=== PATIENT | female | born 1995 ===

== ENCOUNTER 2018-05-25 19:27 | Emergency (ER) | payer SELFPAY ==
[2018-05-25] MEDS ORDERED: Sodium Chloride 0.9% 500 ML IV ONE (20:04)
--- NOTE | 2018-05-25 20:04 | C.PDOC ---
History Of Present Illness 23 year old female presents to the ED c/o nausea and vomiting that started today. Patient states she has not been able to keep anything down, reports her LMp was on 05/12/18. Contrary to triage patient denies headache. Patient also denies fever, chills, diarrhea, abdominal pain, back pain, dysuria, recent travel, sick contacts. Time Seen by Provider: 05/25/18 19:48 Chief Complaint (Nursing): Headache History Per: Patient History/Exam Limitations: no limitations Onset/Duration Of Symptoms: Days (today) Current Symptoms Are (Timing): Still Present Quality Of Discomfort: "Pain" Associated Symptoms: Nausea, Vomiting. denies: Diarrhea, Urinary Symptoms Recent travel outside of the [place]: No Additional History Per: Patient Abnormal Vaginal Bleeding: No Last Menstral Period: 05/12/18 Past Medical History Reviewed: Historical Data, Nursing Documentation, Vital Signs Vital Signs: Last Vital Signs Temp 98 F 05/25/18 19:30 Pulse 84 05/25/18 19:30 Resp 20 05/25/18 19:30 BP 106/67 05/25/18 19:30 Pulse Ox 98 05/25/18 19:30 - Medical History PMH: No Chronic Diseases Surgical History: No Surg Hx Family History: States: Unknown Family Hx - Social History Hx Alcohol Use: Yes Hx Substance Use: No - Immunization History Hx Tetanus Toxoid Vaccination: No Hx Influenza Vaccination: No Hx Pneumococcal Vaccination: No Review Of Systems Constitutional: Negative for: Fever, Chills Cardiovascular: Negative for: Chest Pain, Palpitations Respiratory: Negative for: Shortness of Breath Gastrointestinal: Positive for: Nausea, Vomiting. Negative for: Abdominal Pain, Diarrhea Genitourinary: Negative for: Dysuria Musculoskeletal: Negative for: Back Pain Skin: Negative for: Rash Neurological: Negative for: Weakness, Numbness Physical Exam - Physical Exam Appears: Non-toxic, No Acute Distress Skin: Normal Color, Warm, Dry Head: Atraumatic, Normacephalic Eye(s): bilateral: Normal Inspection Oral Mucosa: Moist Neck: Normal ROM, Supple Chest: Symmetrical Cardiovascular: Rhythm Regular Respiratory: Normal Breath Sounds, No Rales, No Rhonchi, No Wheezing Gastrointestinal/Abdominal: Soft, No Tenderness, No Guarding, No Rebound Extremity: Normal ROM, No Tenderness, No Swelling Neurological/Psych: Oriented x3, Normal Speech, Normal Cognition Gait: Steady ED Course And Treatment O2 Sat by Pulse Oximetry: 98 (On RA) Pulse Ox Interpretation: Normal Medical Decision Making Medical Decision Making: Plan: * Iv fluids * zofran 4 mg IVP Disposition Counseled Patient/Family Regarding: Studies Performed, Diagnosis, Need For Followup, Rx Given - Disposition Referrals: [facility] [Outside] [facility] [Outside] [facility] [Outside] Disposition: HOME/ ROUTINE Disposition Time: 20:45 Condition: IMPROVED Prescriptions: Ondansetron ODT [Zofran ODT] 4 mg PO TID PRN #12 odt PRN Reason: Nausea/Vomiting Instructions: Nausea and Vomiting of (DC) Forms: [employer] (Pashto), Work Excuse Print Language: OCCITAN - Clinical Impression Clinical Impression: Vomiting - Scribe Statement The provider has reviewed the documentation as recorded by the Scribe Michael Rodarte All medical record entries made by the Scribe were at my direction and personally dictated by me. I have reviewed the chart and agree that the record accurately reflects my personal performance of the history, physical exam, medical decision making, and the department course for this patient. I have also personally directed, reviewed, and agree with the discharge instructions and disposition.
[2018-05-25 21:01] VITALS: BP 100/59; PULSE 77; RESP 18; TEMP 98.9; O2SAT 100
== END 2018-05-25 21:01 | disposition home or self-care (01) ==
LOC: C.ER 19:27
DX: O21.9 Vomiting of pregnancy, unspecified (principal); Z3A.00 Weeks of gestation of pregnancy not specified
CPT/HCPCS: 81025; 96374; 99285; J2405; J7040

== ENCOUNTER 2018-06-01 01:32 | Emergency (ER) | payer OTHER ==
[2018-06-01 01:58] VITALS: TEMP 98.4; O2SAT 100
[2018-06-01] MEDS ORDERED: Sodium Chloride 0.9% 2,000 ML IV ONE (02:14)
--- NOTE | 2018-06-01 02:14 | C.PDOC ---
History Of Present Illness 23 year old female, , presents to the ED c/o nausea and vomit. Patient is unsure of her LMP, also c/o not being able to tolerate PO. Patient denies fever, chills, abdominal pain, back pain, dysuria, hematuria, vaginal bleeding. Time Seen by Provider: 06/01/18 02:13 Chief Complaint (Nursing): GI Problem History Per: Patient History/Exam Limitations: no limitations Onset/Duration Of Symptoms: Days Current Symptoms Are (Timing): Still Present Recent travel outside of the [place]: No Additional History Per: Patient Past Medical History Reviewed: Historical Data, Nursing Documentation, Vital Signs Vital Signs: Last Vital Signs Temp 98.4 F 06/01/18 01:52 Pulse 79 06/01/18 01:52 Resp 22 06/01/18 01:52 BP 113/67 06/01/18 01:52 Pulse Ox 100 06/01/18 01:52 - Medical History PMH: No Chronic Diseases Surgical History: No Surg Hx Family History: States: Unknown Family Hx - Social History Hx Alcohol Use: Yes Hx Substance Use: No - Immunization History Hx Tetanus Toxoid Vaccination: No Hx Influenza Vaccination: No Hx Pneumococcal Vaccination: No Review Of Systems Constitutional: Negative for: Fever, Chills Cardiovascular: Negative for: Chest Pain Respiratory: Negative for: Cough Gastrointestinal: Positive for: Nausea, Vomiting. Negative for: Diarrhea Genitourinary: Negative for: Dysuria, Hematuria, Vaginal Bleeding Musculoskeletal: Negative for: Back Pain Neurological: Negative for: Weakness, Numbness Physical Exam - Physical Exam Appears: Non-toxic, No Acute Distress Skin: Warm, Dry Head: Normacephalic Eye(s): bilateral: Normal Inspection Neck: Supple Chest: Symmetrical Cardiovascular: Rhythm Regular Respiratory: No Rales, No Rhonchi, No Wheezing Gastrointestinal/Abdominal: Soft, No Tenderness, No Guarding, No Rebound Back: No CVA Tenderness Extremity: Bilateral: Atraumatic, Normal Color And Temperature, Normal ROM Neurological/Psych: Oriented x3, Normal Speech, Normal Cognition Gait: Steady ED Course And Treatment - Laboratory Results Result Diagrams: 06/01/18 02:36 06/01/18 02:36 O2 Sat by Pulse Oximetry: 100 (ON RA) Pulse Ox Interpretation: Normal Progress Note: Plan: - Labs. - Protonix 40 mg IVP. - IV fluids. - Zofran 4 mg IVP. - UA Reevaluation Time: 04:06 Reassessment Condition: Improved Disposition Counseled Patient/Family Regarding: Studies Performed, Diagnosis, Need For Followup, Rx Given - Disposition Referrals: [facility] [Outside] [facility] [Outside] Disposition: HOME/ ROUTINE Disposition Time: 02:14 Condition: FAIR Additional Instructions: Please return if symptoms recur Prescriptions: Metoclopramide [Reglan] 1 tab PO TID PRN #25 tab PRN Reason: Nausea/Vomiting Nitrofurantoin Macrocrystals [Macrobid] 1 cap PO BID #14 cap Instructions: Urinary Tract Infection, Adult (DC), Nausea and Vomiting of (DC) Forms: [employer] (Sami) Print Language: ISRAELI - Clinical Impression Clinical Impression: Vomiting , UTI (urinary tract infection) during - Scribe Statement The provider has reviewed the documentation as recorded by the Scribe Michael Rodarte All medical record entries made by the Scribe were at my direction and personally dictated by me. I have reviewed the chart and agree that the record accurately reflects my personal performance of the history, physical exam, medical decision making, and the department course for this patient. I have also personally directed, reviewed, and agree with the discharge instructions and di sposition.
[2018-06-01 02:39] LABS: BASO # 0.1 K/uL (0.0-0.2); BASO % 0.9 % (0.0-2.0); EOS # 0.1 K/uL (0.0-0.7); HEMOGLOBIN 12.7 g/dL (11.0-16.0); LYMPH # 1.3 K/uL (1.0-4.3); MEAN CELL VOLUME 87.7 fL (81.0-99.0); MEAN CORPUSCULAR HEMOGLOBIN 29.6 pg (27.0-31.0); MEAN CORPUSCULAR HGB CONC 33.7 g/dL (33.0-37.0); MEAN PLATELET VOLUME 9.4 fL (7.2-11.7); MONO # 0.6 K/uL (0.0-0.8); MONO % 8.1 % (0.0-10.0); NEUT # 4.8 K/uL (1.8-7.0); RBC 4.3 Mil/uL (3.80-5.20); RED CELL DISTRIBUTION WIDTH 13.5 % (11.5-14.5); WHITE BLOOD COUNT 6.8 K/uL (4.8-10.8)
[2018-06-01] MEDS ORDERED: Sodium Chloride 0.9% 1,000 ML ONE (02:40)
[2018-06-01 02:48] LABS: SQUAMOUS EPITHIAL 53 /hpf (0-5); URINE BILIRUBIN NEGATIVE (NEGATIVE); URINE BLOOD NEGATIVE (NEGATIVE); URINE CLARITY Hazy (Clear); URINE COLOR Amber (YELLOW); URINE GLUCOSE (UA) NORMAL (Normal); URINE LEUKOCYTE ESTERASE 2+ Leu/uL (Negative); URINE PROTEIN 2+ mg/dL (NEGATIVE); URINE UROBILINOGEN NORMAL mg/dL (0.2-1.0)
[2018-06-01 02:51] LABS: ALB/GLOB RATIO 1.7 (1.0-2.1); ALBUMIN 4.5 g/dL (3.5-5.0); ALT/SGPT 22 U/L (9-52); AST/SGOT 20 U/L (14-36); BLOOD UREA NITROGEN 11 mg/dL (7-17); CALCIUM 9.2 mg/dl (8.6-10.4); GFR NON-AFRICAN AMERICAN > 60; LIPASE 43 U/L (23-300)
[2018-06-01 03:22] VITALS: BP 105/71; PULSE 84; RESP 16
== END 2018-06-01 04:23 | disposition home or self-care (01) ==
LOC: C.ER 01:32
DX: O21.9 Vomiting of pregnancy, unspecified (principal); O23.40 Unspecified infection of urinary tract in pregnancy, unspecified trimester; Z3A.00 Weeks of gestation of pregnancy not specified
CPT/HCPCS: 80053; 81001; 83690; 84702; 85025; 96374; 96375; 99284; J2405; J7030

== ENCOUNTER 2018-06-20 17:00 | Emergency (ER) | payer OTHER ==
[2018-06-20 17:18] VITALS: RESP 16; O2SAT 100
[2018-06-20] MEDS ORDERED: Sodium Chloride 0.9% 1,000 ML IV ONE (18:59)
--- NOTE | 2018-06-20 19:00 | C.PDOC ---
History Of Present Illness Patient is a 23 year old female who presents to the ED c/o nausea, vomiting, epigastric and RLQ pain. Patient states the she was seen in the ED in the beginning of May and found out she was . Unknown last LMP. She denies any urinary symptoms or vaginal bleeding. <Lindsay Plasencia - Last Filed: 06/20/18 19:26> History Per: Patient History/Exam Limitations: no limitations Location Of Pain/Discomfort: RLQ, Epigastric Quality Of Discomfort: "Pain" Associated Symptoms: Nausea, Vomiting. denies: Urinary Symptoms Recent travel outside of the [place]: No Additional History Per: Patient Abnormal Vaginal Bleeding: No <Lindsay Plasencia - Last Filed: 06/20/18 19:26> <Jhonathan Wells - Last Filed: 06/20/18 22:04> Time Seen by Provider: 06/20/18 17:42 Chief Complaint (Nursing): Abdominal Pain Past Medical History Reviewed: Historical Data, Nursing Documentation, Vital Signs Vital Signs: Last Vital Signs Temp 98.4 F 06/20/18 17:16 Pulse 64 06/20/18 17:16 Resp 16 06/20/18 17:16 BP 97/62 L 06/20/18 17:16 Pulse Ox 100 06/20/18 17:16 - Medical History PMH: No Chronic Diseases Surgical History: No Surg Hx Family History: States: Unknown Family Hx - Social History Hx Alcohol Use: Yes Hx Substance Use: No - Immunization History Hx Tetanus Toxoid Vaccination: No Hx Influenza Vaccination: No Hx Pneumococcal Vaccination: No <Lindsay Plasencia - Last Filed: 06/20/18 19:26> Vital Signs: Last Vital Signs Temp 98.5 F 06/20/18 21:22 Pulse 62 06/20/18 21:22 Resp 16 06/20/18 17:16 BP 100/59 L 06/20/18 21:22 Pulse Ox 100 06/20/18 21:22 <Jhonathan Wells - Last Filed: 06/20/18 22:04> Review Of Systems Gastrointestinal: Positive for: Nausea, Vomiting, Abdominal Pain (RLQ and epigastric pain ) Genitourinary: Negative for: Dysuria, Hematuria, Vaginal Bleeding <Lindsay Plasencia - Last Filed: 06/20/18 19:26> Physical Exam - Physical Exam Appears: Non-toxic, No Acute Distress Skin: Normal Color, Warm, Dry Head: Atraumatic, Normacephalic Oral Mucosa: Moist Neck: Normal ROM, Supple Chest: Symmetrical, No Deformity Cardiovascular: Rhythm Regular, No Murmur Respiratory: Normal Breath Sounds, No Rales, No Rhonchi, No Wheezing Gastrointestinal/Abdominal: Bowel Sounds (normal), Soft, Tenderness (mild epigastric and mild right pelvic tenderness ) Extremity: Normal ROM Neurological/Psych: Oriented x3, Normal Speech, Other (alert) <Lindsay Plasencia - Last Filed: 06/20/18 19:26> ED Course And Treatment O2 Sat by Pulse Oximetry: 100 (on RA) Pulse Ox Interpretation: Normal <Lindsay Plasencia - Last Filed: 06/20/18 19:26> - Laboratory Results Result Diagrams: 06/20/18 19:23 06/20/18 19:23 Lab Results: Total Bilirubin 0.6 mg/dL (0.2-1.3) 06/20/18 19:23 AST 31 U/L (14-36) 06/20/18 19:23 ALT 25 U/L (9-52) 06/20/18 19:23 Alkaline Phosphatase 54 U/L (38-126) 06/20/18 19:23 Total Protein 7.4 g/dL (6.3-8.3) 06/20/18 19:23 Albumin 4.4 g/dL (3.5-5.0) 06/20/18 19:23 Globulin 3.0 gm/dL (2.2-3.9) 06/20/18 19:23 Albumin/Globulin Ratio 1.5 (1.0-2.1) 06/20/18 19:23 Urine Color Yellow (YELLOW) 06/20/18 19:23 Urine Clarity Hazy (Clear) 06/20/18 19:23 Urine pH 5.0 (5.0-8.0) 06/20/18 19:23 Ur Specific [place] 1.031 (1.003-1.030) H 06/20/18 19:23 Urine Protein 2+ mg/dL (NEGATIVE) H 06/20/18 19:23 Urine Glucose (UA) Normal mg/dL (Normal) 06/20/18 19:23 Urine Ketones 2+ mg/dL (NEGATIVE) H 06/20/18 19:23 Urine Blood Negative (NEGATIVE) 06/20/18 19:23 Urine Nitrate Negative (NEGATIVE) 06/20/18 19:23 Urine Bilirubin Negative (NEGATIVE) 06/20/18 19:23 Urine Urobilinogen 2.0 mg/dL (0.2-1.0) H 06/20/18 19:23 Ur Leukocyte Esterase Neg Amelia/uL (Negative) 06/20/18 19:23 Urine WBC (Auto) 1 /hpf (0-5) 06/20/18 19:23 Urine RBC (Auto) 1 /hpf (0-3) 06/20/18 19:23 Ur Squamous Epith Cells 5 /hpf (0-5) 06/20/18 19:23 Urine Bacteria Rare (<OCC) 06/20/18 19:23 Urine HCG, Qual Positive (NEGATIVE) 06/20/18 19:23 Beta HCG, Quant [id number] mIU/ML 06/20/18 19:23 Urine HCG, Qual Positive (NEGATIVE) 06/20/18 19:23 <Jhonathan Wells - Last Filed: 06/20/18 22:04> Medical Decision Making Medical Decision Making: Plan: POC Urine Urinalysis Zofran Pepcid US Transvaginal <Lindsay Plasencia - Last Filed: 06/20/18 19:26> Medical Decision Makin imaging w/ L ovarian cyst. Repeat exam, No RLQ pain. No LLQ palpation w/ associatd R pain. No R flank pain. NO peritoneal signs or rebound. No elevated WBC. No periumbilical pain. No L shift, No leukocytosis Likely ovarian cyst / pain Tolerating clears, clear for d/c home with return indications and f/u. Hamilton score negative 1: Unlikely appendicits Pt to follow up w/ clinic OBGYN. PT agreeable to plan. Given strict return pr ecautions if pain retuns. She is agreeeable <Jhonathan Wells - Last Filed: 06/20/18 22:04> Disposition - Disposition Disposition Time: 19:27 <Lindsay Plasencia - Last Filed: 06/20/18 19:26> <Jhonathan Wells - Last Filed: 06/20/18 22:04> - Disposition Condition: GOOD Forms: [employer] (Tajik) - Clinical Impression Clinical Impression: Hyperemesis, Abdominal pain during in first trimester - Scribe Statement The provider has reviewed the documentation as recorded by the Scribe Dulce Godfrey <Lindsay Plasencia - Last Filed: 06/20/18 19:26> Physician Patient Turnover Patient Signed Over To: Jhonathan Wells Handoff Comments: f/u labs, ua, us , re-evbal and dispo <Lindsay Plasencia - Last Filed: 06/20/18 19:26>
[2018-06-20] MEDS ORDERED: Sodium Chloride 0.9% 1,000 ML ONE (19:31)
[2018-06-20 19:36] LABS: HCG,QUALITATIVE URINE POSITIVE (NEGATIVE)
[2018-06-20 19:37] LABS: BASO % 0.4 % (0.0-2.0); EOS # 0.1 K/uL (0.0-0.7); EOS % 1.7 % (0.0-4.0); HEMOGLOBIN 13.1 g/dL (11.0-16.0); LYMPH # 1.3 K/uL (1.0-4.3); LYMPH % 19.4 % (20.0-40.0); MEAN CELL VOLUME 88.8 fL (81.0-99.0); MEAN CORPUSCULAR HEMOGLOBIN 28.8 pg (27.0-31.0); MEAN CORPUSCULAR HGB CONC 32.4 g/dL (33.0-37.0); MEAN PLATELET VOLUME 9.7 fL (7.2-11.7); MONO # 0.5 K/uL (0.0-0.8); NEUT # 4.9 K/uL (1.8-7.0); NEUT % 71.5 % (50.0-75.0); NRBC % 0.1 % (0.0-2.0); RBC 4.54 Mil/uL (3.80-5.20); RED CELL DISTRIBUTION WIDTH 13.7 % (11.5-14.5); WHITE BLOOD COUNT 6.9 K/uL (4.8-10.8)
[2018-06-20 19:42] LABS: SQUAMOUS EPITHIAL 5 /hpf (0-5); URINE BACTERIA RARE (<OCC); URINE BILIRUBIN NEGATIVE (NEGATIVE); URINE BLOOD NEGATIVE (NEGATIVE); URINE CLARITY Hazy (Clear); URINE GLUCOSE (UA) NORMAL (Normal); URINE LEUKOCYTE ESTERASE NEG Leu/uL (Negative); URINE PROTEIN 2+ mg/dL (NEGATIVE)
[2018-06-20 20:09] LABS: ALB/GLOB RATIO 1.5 (1.0-2.1); ALBUMIN 4.4 g/dL (3.5-5.0); ALT/SGPT 25 U/L (9-52); AST/SGOT 31 U/L (14-36); BLOOD UREA NITROGEN 9 mg/dL (7-17); CALCIUM 9.5 mg/dl (8.6-10.4); GFR NON-AFRICAN AMERICAN > 60
[2018-06-20 21:02] LABS: URINE COLOR YELLOW (YELLOW)
[2018-06-20 21:22] VITALS: BP 100/59; PULSE 62; TEMP 98.5
--- NOTE | 2018-06-21 09:41 | US ---
Date of service: 06/20/2018 PROCEDURE: OB Pelvic Ultrasound HISTORY: RIGHT LOWER AB PAIN, PREG LMP: 04/14/2018 COMPARISON: None available. FINDINGS: UTERUS: Gestational sac: Single intrauterine gestation. Heart rate: 161 bpm. Gestational sac diameter measures 3.65 cm corresponding to 8 weeks and 6 days of gestational age. Yolk sac is visualized. CRL measures 2.33 cm corresponding to 9 weeks and 0 day of gestational age. age (Ultrasound estimated): Suyapa-gestational hemorrhage: None. Date of delivery (Ultrasound estimated) : Uterus measures 10.6 x 8.1 x 9.4 cm. Normal in size and appearance. CERVIX: Measures 4.2 cm. Long and closed. No cervical abnormality seen. RIGHT OVARY: Measures 3.3 x 1.7 x 3.4 cm. No mass lesion. Normal flow. LEFT OVARY: Measures 3.4 x 2.3 x 3.0 cm. No solid mass. Normal flow. There is a 1.7 x 1.7 x 2.0 cm corpus luteum cyst in the left ovary. FREE FLUID: None. OTHER FINDINGS: None. IMPRESSION: Single live intrauterine gestation with mean gestational age of 9 weeks and 0 day. The estimated date of delivery by ultrasound is 01/23/2019. The ultrasound dates correspond with the clinical dates. A preliminary report was provided by [employer].
== END 2018-06-20 22:15 | disposition home or self-care (01) ==
LOC: C.ER 17:00
DX: O21.9 Vomiting of pregnancy, unspecified (principal); O26.891 Other specified pregnancy related conditions, first trimester; R10.9 Unspecified abdominal pain; Z3A.09 9 weeks gestation of pregnancy
CPT/HCPCS: 76801; 80053; 81001; 84702; 84703; 85025; 96361; 96374; 96375; 99284; J2405; J7030

== ENCOUNTER 2018-06-25 13:52 | Outpatient (CLI) | payer OTHER | END 2018-06-25 13:53 | disposition home or self-care (01) | LOC: C.LAB 13:52 | DX: Z34.91 Encounter for supervision of normal pregnancy, unspecified, first trimester (principal) ==